=== PATIENT | female | born 1955 | race Caucasian/White ===

== ENCOUNTER 2020-11-27 14:20 | Emergency (ER) | payer MEDICARE, BC ==
--- NOTE | 2020-11-27 15:52 | EDM.PDOC ---
ED HPI GENERAL MEDICAL PROBLEM - General Chief Complaint: General Stated Complaint: [facility] Time Seen by Provider: 11/27/20 14:28 Source of Information: Reports: Patient, RN Notes Reviewed History Limitations: Reports: No Limitations - History of Present Illness INITIAL COMMENTS - FREE TEXT/NARRATIVE: Patient is a 65-year-old female presenting to the emergency department for evaluation of cough, nausea, and fatigue. Reports symptoms began about 8 days ago. is Covid positive. She denies any chest pain or shortness of breath. She presented via ambulance while her was bring brought in for evaluation. Initially did not want to be seen, however did decide to be evaluated. She has had no fever, chills, vomiting, or diarrhea. Denies any significant body aches. 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 ED EXAM, GENERAL - Physical Exam Exam: See Below Exam Limited By: No Limitations General Appearance: Alert, WD/WN, No Apparent Distress Respiratory/Chest: No Respiratory Distress, Lungs Clear, Normal Breath Sounds, No Accessory Muscle Use, Chest Non-Tender Cardiovascular: Normal Peripheral Pulses, Regular Rate, Rhythm, No Edema, No Gallop, No JVD, No Murmur, No Rub GI/Abdominal: Normal Bowel Sounds, Soft, Non-Tender, No Organomegaly, No Distention, No Abnormal Bruit, No Mass Neurological: Alert, Oriented, CN II-XII Intact, Normal Cognition, Normal Gait, Normal Reflexes, No Motor/Sensory Deficits Psychiatric: Normal Affect, Normal Mood Skin Exam: Warm, Dry, Intact, Normal Color, No Rash Course - Vital Signs Last Recorded V/S: Last Vital Signs Temp 97.9 F 11/27/20 14:28 Pulse 57 L 11/27/20 18:00 Resp 16 11/27/20 18:00 BP 103/60 11/27/20 18:00 Pulse Ox 95 11/27/20 18:00 - Orders/Labs/Meds Labs: Laboratory Tests 11/27/20 Range/Units 14:33 SARS-CoV-2 RNA ([facility]) Positive H (NEGATIVE) Meds: Medications Discontinued Medications Generic Name Dose Route Start Last Admin Trade Name Freq PRN Reason Stop Dose Admin Diphenhydramine HCl 50 mg 11/27/20 15:59 Diphenhydramine 50 Mg/Ml Sdv IVPUSH ONETIME PRN hypersensitivity reaction Epinephrine HCl 0.3 mg 11/27/20 15:59 Epinephrine 1 Mg/Ml Sdv IM ONETIME PRN hypersensitivity reaction Famotidine 20 mg 11/27/20 15:59 Famotidine 20 Mg/2 Ml Sdv IVPUSH ONETIME PRN hypersensitivity reaction CASIRIVIMAB/IMDEVIMAB 10 ml/ 110 mls @ 220 mls/hr 11/27/20 15:59 11/27/20 16:38 Sodium Chloride IV 11/27/20 16:28 220 mls/hr ONETIME ONE Administration Methylprednisolone Sodium Succinate 125 mg 11/27/20 15:59 Methylprednisolone Sodium Succinate 125 Mg/2 Ml Sdv IVPUSH ONETIME PRN hypersensitivity reaction Sodium Chloride 30 ml 11/27/20 16:00 Sodium Chloride 0.9% 10 Ml Syringe FLUSH ASDIRECTED BRANDY - Re-Assessments/Exams Free Text/Narrative Re-Assessment/Exam: 11/27/20 15:58 Patient's Covid test did return positive I spoke with patitn to provide information about Regneron treatment I offered them the ``Patient and Caregiver EUA Regeneron Fact Sheet to read and review I stated the drug has been approved by an emergency use authorization (EUA) process and has not fully been FDA reviewed or approved The patient meets the EUA requirements I discussed there are other potential treatment options that are currently not FDA approved to treat COVID-19. Offered opportunity to ask questions and all questions were answered Patient voiced understanding and agreed to proceed with treatment 11/27/20 18:10 Chest x-ray shows no evidence of Covid pneumonia. Patient completed her Regeneron infusion as well as the 1 hour monitoring period without adverse event. She will be discharged home. Discharge instructions as documented Departure - Departure Time of Disposition: 18:10 Disposition: Home, Self-Care 01 Condition: Good Clinical Impression: COVID-19 - Discharge Information *PRESCRIPTION DRUG MONITORING PROGRAM REVIEWED*: No *COPY OF PRESCRIPTION DRUG MONITORING REPORT IN PATIENT RAJIV: No Instructions: COVID-19 Referrals: PCP,None [Primary Care Provider] - Forms: ED Department Discharge Additional Instructions: You were seen in the emergency department today for evaluation of COVID-19 symptoms. Covid testing was done and you are found to be positive. Chest x-ray was completed and show no evidence of Covid pneumonia. Your exam was overall normal. While in the ER, you received an infusion of monoclonal antibodies. Recommend that you go home and rest. Ensure you are taking an adequate amount of fluid. You may use Tylenol or ibuprofen as needed for discomfort. Recommend monitoring her oxygen saturation at home. If you are maintaining an oxygen saturation below 90% or you develop any other new or worsening symptoms of c oncern, recommend return to the ER for reevaluation.
[2020-11-27] MEDS ORDERED: Famotidine 20 MG/2 ML SDV IVPUSH PRN (15:59)
[2020-11-27] MEDS ORDERED: methylPREDNISolone Sodium Succinate 125 MG/2 ML SDV IVPUSH PRN (15:59)
[2020-11-27] MEDS ORDERED: EPINEPHrine 1 MG/ML SDV IM PRN (15:59)
[2020-11-27] MEDS ORDERED: diphenhydrAMINE 50 MG/ML SDV IVPUSH PRN (15:59)
[2020-11-27] MEDS ORDERED: Sodium Chloride 0.9% 10 ML Syringe FLUSH SCH (16:00)
--- NOTE | 2020-11-28 07:13 | CR ---
Chest: Portable view of the chest was obtained. Comparison: Prior chest x-ray of 06/19/16. Heart size is at the upper limits of normal. Upper mediastinum appears within normal limits. Slight parenchymal density is seen along the periphery of the right lower lobe possibly due to minimal pneumonia. Lungs otherwise are clear. Bony structures show nothing acute. Impression: 1. Possible small area of pneumonia within the periphery of the right lung base possibly due to COVID pneumonia. 2. Nothing acute is otherwise seen on portable chest x-ray. Diagnostic code #3
== END 2020-11-27 18:20 | disposition home or self-care (01) ==
LOC: JD.ED 14:20
DX: U07.1 COVID-19 (principal); I10 Essential (primary) hypertension; Z79.899 Other long term (current) drug therapy
CPT/HCPCS: 71045; 99284; M0243; Q0243; U0002; 99283